=== PATIENT | female | born 1980 | race Caucasian/White ===

== ENCOUNTER → 2019-08-28 | Outpatient (CLI) | payer OTHER ==
[~2019-08-28] MED LIST: CYCL10 PO; IBUP800 PO; LABE100 PO; OXYACE5T PO; PHENA200 PO; Prednisone20 MG PO; SULTRIDS PO; TRAM50 PO; Verotin-Gr Cap1 EACH PO
[2019-08-31 03:07] LABS: CHLAMYDIA TRACHOMATIS, NAA Positive (Negative); NEISSERIA GONORRHOEAE, NAA Negative (Negative)
== END ==
LOC: LAB 17:32 → LAB SHORT 17:32
PROVIDERS: Registered Nurse Community Health
DX: Z20.2 Contact with and (suspected) exposure to infections with a predominantly sexual mode of transmission (principal)
CPT/HCPCS: 87491; 87591

== ENCOUNTER → 2022-08-24 | Outpatient (CLI) | payer OTHER ==
[2022-08-24 16:07] LABS: BASOPHILS ABSOLUTE AUTO 0.04 K/mm3 (0.00-0.23); BASOPHILS PERCENT AUTO 1 % (0-2); EOSINOPHILS ABSOLUTE AUTO 0.08 K/mm3 (0.00-0.68); EOSINOPHILS PERCENT AUTO 1 % (0-6); Hematocrit 39.7 % (33.0-51.0); Hemoglobin 13.4 g/dL (11.5-16.0); IMMATURE GRAN ABSOLUTE AUTO 0.01 K/mm3 (0.00-0.10); IMMATURE GRAN PERCENT AUTO 0 % (0-1); LYMPHOCYTES ABSOLUTE AUTO 1.42 K/mm3 (0.84-5.20); LYMPHOCYTES PERCENT AUTO 25 % (21-46); MONOCYTES ABSOLUTE AUTO 0.49 K/mm3 (0.16-1.47); MONOCYTES PERCENT AUTO 9 % (4-13); Mean Corpuscular HGB 29.2 pg (26.0-34.0); Mean Corpuscular HGB Conc 33.8 g/dL (31.5-36.5); Mean Corpuscular Volume 87 fL (80-100); Mean Platelet Volume 10.2 fL (9.1-12.4); NEUTROPHILS ABSOLUTE AUTO 3.69 K/mm3 (1.96-9.15); NEUTROPHILS PERCENT AUTO 64 % (41-73); Platelet Count 275 K/mm3 (150-400); RDW Coefficient Variation 12.8 % (11.7-14.2); RDW Standard Deviation 40.2 fL (35.1-46.3); Red Blood Cell Count 4.59 M/mm3 (3.80-5.20); White Blood Cell Count 5.73 K/mm3 (4.00-11.30)
[2022-08-24 16:45] LABS: Alanine Aminotransfer (ALT/SGP 25 U/L (12-78); Albumin, Blood 3.4 g/dL (3.4-5.0); Alk Phos 73 U/L (50-136); Anion Gap 5 mmol/L (6-16); Aspartate Aminotrans (AST/SGOT 14 U/L (12-37); Bilirubin, Total 0.2 mg/dL (0.1-1.0); Blood Urea Nitrogen 30 mg/dL (8-24); Bun/Creatinine Ratio 24.2 (12.0-20.0); CHOL/HDL RATIO 4.3; CO2, Blood 28 mmol/L (21-32); Chloride, Blood 103 mmol/L (98-108); Cholesterol 211 mg/dL (50-200); Creatinine, Blood 1.24 mg/dL (0.40-1.00); Globulin, Blood 3.5 g/dL (2.2-4.0); Glomerular Filtration Rate 55 (60-); Glucose, Blood 115 mg/dL (70-99); HDL Cholesterol 49 mg/dL (>39); LDL/HDL RATIO 1.9; Low Density Lipoprotein Chol 94 mg/dL (0-110); Potassium, Blood 3.8 mmol/L (3.5-5.5); Sodium, Blood 136 mmol/L (136-145); Total Protein, Blood 6.9 g/dL (6.4-8.2); Triglycerides 342 mg/dL (30-160); Very Low Density Lipoprot Chol 68 mg/dL (6-32)
== END | disposition home or self-care (01) ==
LOC: LAB 12:04 → LAB SHORT 12:04
PROVIDERS: Nurse Practitioner Family
DX: I10 Essential (primary) hypertension (principal); F32.A Depression, unspecified
CPT/HCPCS: 80053; 80061; 84443; 85025

== ENCOUNTER → 2022-10-21 | Outpatient (CLI) | payer OTHER ==
[2022-10-22 11:42] LABS: Candida species (DNA Probe) Negative (NEGATIVE); G. vaginalis (DNA Probe) Negative (NEGATIVE); T. vaginalis (DNA Probe) Positive (NEGATIVE)
== END | disposition home or self-care (01) ==
LOC: LAB SHORT 16:15 → LAB 16:15
PROVIDERS: Registered Nurse Community Health
DX: N89.8 Other specified noninflammatory disorders of vagina (principal)
CPT/HCPCS: 87480; 87510; 87660